=== PATIENT | male | born 1950 | race Caucasian/White ===

== ENCOUNTER 2018-05-03 05:57 | Inpatient (IN) ==
[2018-05-03] MEDS ORDERED: Metoprolol Tartrate 25 MG Tablet PO ONE (06:30)
[2018-05-03] MEDS ORDERED: Chlorhexidine Gluconate 2% 1 Pack (2 Cloths) TOPICAL ONE (06:30)
[2018-05-03] MEDS ORDERED: Heparin 10,000 UNITS/10 ML Vial (for IV use) ONE ×2 (06:56→08:20)
[2018-05-03] MEDS ORDERED: Heparin/NS PF Inj 500 ML ONE ×3 (06:56→10:38)
[2018-05-03] MEDS ORDERED: ceFAZolin 2 GM Premix Inj 2 GM/50 ML PIGGYBACK IV.SIG ONE (06:56)
[2018-05-03] MEDS ORDERED: Protamine Sulfate Inj 50 MG/5 ML Vial ONE ×2 (06:56→08:20)
[2018-05-03] MEDS ORDERED: Sodium Chlor 0.9% Inj 500 ML IV.SIG SCH (07:00)
--- NOTE | 2018-05-03 07:23 | P.PNVS ---
- Pre-operative Note Planned Procedure: EVAR with bilateral hypogastric branches Interval History: Pt has been feeling well - no F/C. Labs: Hct 45 plt 193 INR 2.1 (stopped coumadin) cr 1.1 Imaging: CTA reviewed Orders: NPO Ancef 2g IV OCTOR Post-operative Destination: PACU, CPCU Operative site marked: No Consent: Informed consent has been obtained from Bennie Garcia. I have explained the procedure in detail and discussed the risks, benefits, and potential complications. All questions have been answered. Patient Contact Information: [phone]
[2018-05-03 07:26] LABS: INR 1.1 Ratio; Prothrombin Time 10.7 sec (9.8-11.6)
[2018-05-03] MEDS ORDERED: Phenylephrine/NS 1000 MCG/10ML Syringe IV.PUSH ONE (07:47)
[2018-05-03] MEDS ORDERED: Sodium Chlor 0.9% Inj 500 ML IV.CONT ONE (07:47)
[2018-05-03] MEDS ORDERED: Sodium Chlor 0.9% Inj 250 ML IV.CONT ONE (07:47)
[2018-05-03] MEDS ORDERED: Lidocaine PF 1% Inj 5 ML Syringe OTHER ONE (07:47)
[2018-05-03] MEDS ORDERED: Normosol-R pH 7.4 Inj 2,000 ML IV.CONT ONE (07:47)
[2018-05-03] MEDS ORDERED: Iohexol 300 MG/ML 50 ML Vial (for Rad Diag) IVCONTRAST ONE (11:12)
[2018-05-03] MEDS ORDERED: Morphine Inj 4 MG/ML Vial IV.PUSH PRN (11:40)
[2018-05-03] MEDS ORDERED: Bisacodyl 10 MG Supp RECTAL PRN (11:40)
--- NOTE | 2018-05-03 11:40 | P.OP ---
- Preoperative Diagnosis (1) AAA (abdominal aortic aneurysm) without rupture (2) Iliac artery aneurysm, left (3) Iliac artery aneurysm, right - Postoperative Diagnosis (1) AAA (abdominal aortic aneurysm) without rupture (2) Iliac artery aneurysm, left (3) Iliac artery aneurysm, right Date of procedure: 05/03/18 Procedure: 1. EVAR 2. R DOROTHY aneursym embolization 3. L DOROTHY branched repair (limb to hypogastric artery and EIA) 4. B ELECTRONIC SCALE TESTER Perclose (18F RIGHT, 16F LEFT) Implants: 1. [place] Excluder bifurcated main body 2. L limb extension 3. L DOROTHY bifurcated stent 4. L EIA stent 5. L hypogastric stent 6. R iliac stent Anesthesia: GETA Surgeon: Janes Vee MD Otolaryngology Surgeon: Jason Pham Estimated blood loss (mL): 200 IV fluids (mL): 2,600 Urine output (mL): 1,700 Pathology: none sent Operation and Findings: 1. Successful EVAR 2. Preservation of L hypogastric artery with branched stent 3. Strong Doppler signals B
[2018-05-03] MEDS ORDERED: *morphine SULFATE 4 MG/ML PERIprocedure ONLY ONE ×2 (11:56→12:08)
[2018-05-03] MEDS ORDERED: fentaNYL Citrate Inj 100 MCG/2 ML Ampul ONE (12:04)
[2018-05-03] MEDS ORDERED: *HYDROmorphone PF Inj 1 MG/ML Ampul PERIprocedural Use ONLY ONE (12:21)
[2018-05-03] MEDS ORDERED: ALPRAZolam 0.5 MG Tablet PO PRN (12:45)
--- NOTE | 2018-05-03 17:19 | P.PNVS ---
Subjective Post Op Day #: 0 Procedure: EVAR with L iliac branch, R DOROTHY aneurysm embolization, B CHILI POWDER MIXER perclose Subjective/Hospital Course: c/o positional back pain but otherwise ok feet warm and no sensory changes Objective Vital Signs / I&O: Vital Signs 05/03/18 06:39 05/03/18 13:16 05/03/18 14:48 Temperature 97.9 F 97.6 F Pulse Rate 65 69 Respiratory Rate 16 18 20 Blood Pressure 108/59 L 132/68 Pulse Oximetry 96 95 05/03/18 15:01 05/03/18 15:44 05/03/18 16:00 Temperature 98.2 F Pulse Rate 71 70 86 Respiratory Rate 20 Blood Pressure 112/57 L Pulse Oximetry 95 05/03/18 17:00 Temperature Pulse Rate 69 Respiratory Rate Blood Pressure Pulse Oximetry Intake & Output 05/02/18 05/03/18 05/03/18 18:59 06:59 18:59 Intake Total 2900 / 2900 Output Total 2575 / 2575 Balance 325 / 325 Weight 139.1 kg Intake: IV 1050 / 1050 Heparin/NS PF Inj 500 ML @ 0 0 / 0 mls/hr .ROUTE .STK-MED ONE Rx#: [id number] LR 1000 mL Inj 1,000 ML @ 30 1000 / 1000 mls/hr IV.SIG .Q24H [facility] Rx#: [id number] Ancef 2 GM Premix Inj 2 gm In 50 / 50 50 ml @ 0 mls/hr IV.SIG .STK- MED ONE Rx#:[id number] Oral 250 / 250 Anesthesia Amount 1600 / 1600 Output: Urine 250 / 250 Estimated Blood Loss 200 / 200 Urine Amount (Catheter) 2124 / 2124 Indwelling Urethral Catheter 2124 Other: # Voids 2 Weight On Admission 139.1 kg Exam: no overall distress abdomen soft groins ok feet warm Laboratory Results - last 24 hr 05/03/18 05/03/18 06:35 06:35 PT 10.7 D INR 1.1 Blood Type O Positive Antibody Screen Negative Assessment and Plan - Assessment (1) AAA (abdominal aortic aneurysm) without rupture Code(s): I71.4 - Abdominal aortic aneurysm, without rupture Status: Acute (2) Iliac artery aneurysm, left Code(s): I72.3 - Aneurysm of iliac artery Status: Acute (3) Iliac artery aneurysm, right Code(s): I72.3 - Aneurysm of iliac artery Status: Acute - Plan NOS s/p percutaneous iliac branched EVAR 1. can sit on edge of bed at 1700 today 2. Paiz out in the morning (POD#1) 3. Cardiac diet 4. Potential d/c tomorrow (POD#1) Discharge Planning: POD#1 or 2
[2018-05-03] MEDS: Metoprolol Tartrate 25 MG Tablet PO SCH (21:20)
[2018-05-03] MEDS: Senna/Docusate Sodium 8.6/50 MG Tablet PO SCH (21:20)
--- NOTE | 2018-05-03 21:47 | MP ---
cc: Janes Vee MD DATE OF OPERATION: 05/03/2018 PREOPERATIVE DIAGNOSES: 1. Abdominal aortic aneurysm. 2. Right common iliac artery aneurysm. 3. Left iliac artery aneurysm. POSTOPERATIVE DIAGNOSIS: 1. Abdominal aortic aneurysm. 2. Right common iliac artery aneurysm. 3. Left iliac artery aneurysm. PROCEDURE: Abdominal aortic aneurysm. 1. Endovascular exclusion with a bifurcated aortobiiliac graft. 2. Left common iliac artery bifurcated graft with a stent into the left hypogastric artery and left external iliac artery. 3. Right common iliac artery embolization. 4. Right common femoral artery Perclose (18-Filipino sheath). 6. Left common femoral artery Perclose (16-Filipino sheath). ATTENDING SURGEON: Janes Vee MD ADVISORY SOFTWARE ENGINEER SURGEON: MD Caro Bell PA, PA/Typesetting Machine Operator/Tender ANESTHESIA: General. INDICATIONS FOR PROCEDURE: Mr. Garcia is a 68-year-old gentleman with abdominal aneurysm, bilateral common iliac artery aneurysm. He was taken to the operating room for a branch endovascular repair. Intraoperatively, it was found he had a very high-grade right hypogastric artery stenosis prohibiting the use of a branch device on the side; however, the left hypogastric artery was successfully branched. PROCEDURE: Informed consent was obtained from the patient and he was taken to the operating room and placed supine on the operating room table. An appropriate timeout was taken to ensure the patient's identity, operative site and planned procedure and the administration of 3 grams of Kefzol were initiated prior to the skin incision and will be discontinued after a single preoperative dose. Everyone in the room agreed with the timeout and we proceeded. He was prepped from his nipples to his knees bilateral common femoral accessed with a 21-gauge micropuncture needle was exchanged using Seldinger technique for a micropuncture sheath, through which 0.035 STORQ wire was introduced. The micropuncture sheath was exchanged for a 5-Filipino sheath, which was used to dilate the skin and subcutaneous tract and arteriotomy. Two Perclose ProGlide sutures were inserted into each side and tagged for later use. 8-Filipino sheaths were then introduced. The patient was systemically heparinized and throughout the remainder of the case, the was kept greater than 250. The catheters were advanced over the STORQ wires and the STORQ wires were exchanged for Lunderquist wires. The 8-Filipino sheaths were removed and Kelly dilator was used to dilate the skin and subcutaneous tract and arteriotomy. We dilated up to an 18-Filipino sheath on the right and a 16-Filipino sheath on the left and [place] DrySeal sheaths were placed in both arteries with the sizes above. A 7-Filipino snare was then placed over the left-hand side and a right 18-Filipino sheath was doubly stuck with a stiffened Glidewire and the Glidewire was snared from the left hand side and pulled out the left sheath providing through and through access. Over the stiff wire on the right, the right iliac branch was a 23 x 12 x 10, was then introduced and deployed down to the contralateral gate after interval angiography confirmed the location of the right hypogastric artery. We then attempted multiple maneuvers. We then placed a 16-Filipino sheath and intubated this with a 12-Filipino sheath from the left hand side intubating the right ANDREA down and cannulated the right hypogastric limb and multiple attempts were made to cannulate the right hypogastric artery but these were unsuccessful. As such, a Berenstein catheter was placed from the left hand side into the right common iliac artery and this artery was embolized without difficulty. The remainder of the IVU limb was deployed and then a stiff wires were advanced in the left ANDREA limb, which was a 23 x 10 x 10 was inserted through the left hand side. The 18-Filipino sheath from the right was then advanced by snaring a stiff wire from the left hand side over to the right hand side and then advanced to the 18-Filipino sheath and a 12-Filipino sheath of it from the right hand side up and over the aortic bifurcation into the left hand side. We then used a Berenstein catheter to cannulate the ANDREA gate and into the hypogastric artery. This was confirmed angiographically. The Glidewire was removed and a stiff Amplatz wire was then introduced. Through the 12-Filipino sheath and 18-Filipino sheath on the right, a right ANDREA limb, which was a 16 x 10 x 7 was introduced and deployed without difficulty into the right hypogastric artery. The remainder of the left ANDREA was deployed and the distal ANDREA limb and the hypogastric artery were angioplastied with a 10 mm balloon and the proximal was angioplastied with a Q50 balloon. The left ANDREA was then angioplastied with the Q50 balloon as well. The right ANDREA was angioplastied with a 10 mm balloon and then stiff wire was advanced up to the proximal descending aorta. The left stiff wire was exchanged for a marker Flush catheter and over the right stiff wire through the 18-Filipino sheath after removal of the transfemoral stiff glide, the main device, which was a 28 x 14.5 x 12 was introduced with the limbs purposefully crossed for stabilization. It was deployed and interval angiography was performed to locate the renal arteries and the device was deployed below the renal arteries and down to the contralateral gate. The Roadrunner wire was then placed through the marker flush catheter and the Berenstein catheter was then used, along with the Roadrunner wire to cannulate the contralateral gate and this was confirmed angiographically and with a Q50 balloon. A stiff guidewire was then placed and a bridging piece from the contralateral gate to the left ANDREA was then placed, which was a 27 x 12. This was deployed without difficulty and then the remainder of the main device was deployed. A bridging stent was then placed from the ipsilateral limb of the main device down to the right ANDREA and this was a 27 x 10 and then we relined the right ANDREA with a 16 x 14.5 x 14 limb, thereby excluding the common iliac artery aneurysm on the right hand side. A Q50 was used to balloon angioplasty all the proximal and distal ends as well as the gap and the completion angiogram showed excellent filling of both renal arteries, no opacification of the abdominal aortic aneurysm, the right common iliac artery aneurysm, or the left common iliac artery aneurysm. There was good opacification of the left hypogastric artery and all of its branches and no endoleak. The wire, catheter and sheath were removed. The Perclose were tied down and signals were obtained in the feet. Hemostasis was achieved in the groins and the patient was then awoken from anesthesia and transferred to the recovery room in stable condition. I was present and scrubbed, and performed the entire procedure. MD MIKE Johnson/ct/do , 05:31 PM , 05:44 PM
[2018-05-04 04:30] LABS: Hematocrit 42.5 % (39.0-51.0); Mean Corpuscular Hemoglobin 30.7 pg (27.0-34.0); Mean Corpuscular Volume 92.9 fL (80.0-100.0); Mean Platelet Volume 8.5 fL (7.0-11.0); Platelet Count 159 th/mm3 (150-450); Red Blood Count 4.58 mil/mm3 (4.50-5.90); Red Cell Distribution Width 15.1 % (11.6-17.2); White Blood Count 10.1 th/mm3 (4.0-11.0)
[2018-05-04 05:01] LABS: Calcium 8.4 mg/dL (8.5-10.1); Carbon Dioxide 30.3 meq/L (21.0-32.0); Potassium 3.9 meq/L (3.5-5.1)
--- NOTE | 2018-05-04 06:59 | P.PNVS ---
Subjective Procedure: EVAR with L iliac branch, R DOROTHY aneurysm embolization, B MACHINE ASSEMBLER perclose Subjective/Hospital Course: looks great Paiz out and voiding ambulating in room nidhi po Objective Vital Signs / I&O: Vital Signs 05/03/18 11:42 05/03/18 11:45 05/03/18 12:00 Temperature 97.6 F Pulse Rate 76 71 68 Respiratory Rate 16 16 16 Blood Pressure 116/57 L 117/58 L 120/57 L Pulse Oximetry 95 95 95 05/03/18 12:15 05/03/18 12:30 05/03/18 13:16 Temperature 98 F 97.6 F Pulse Rate 71 72 69 Respiratory Rate 19 16 18 Blood Pressure 123/58 L 118/59 L 132/68 Pulse Oximetry 94 L 94 L 95 05/03/18 14:48 05/03/18 15:01 05/03/18 15:44 Temperature 98.2 F Pulse Rate 71 70 Respiratory Rate 20 20 Blood Pressure 112/57 L Pulse Oximetry 95 05/03/18 16:00 05/03/18 17:00 05/03/18 18:00 Temperature Pulse Rate 86 69 75 Respiratory Rate Blood Pressure Pulse Oximetry 05/03/18 18:45 05/03/18 19:00 05/03/18 20:00 Temperature 97.7 F Pulse Rate 75 76 Respiratory Rate 18 20 Blood Pressure 118/60 Pulse Oximetry 99 05/03/18 21:00 05/03/18 22:00 05/03/18 22:33 Temperature Pulse Rate 78 74 Respiratory Rate 20 Blood Pressure Pulse Oximetry 05/03/18 23:00 05/04/18 00:00 05/04/18 01:00 Temperature 97.9 F Pulse Rate 85 52 L 54 L Respiratory Rate 20 Blood Pressure 115/58 L Pulse Oximetry 97 05/04/18 02:00 05/04/18 03:00 05/04/18 04:00 Temperature 98.5 F Pulse Rate 82 85 82 Respiratory Rate 20 Blood Pressure 106/61 Pulse Oximetry 91 L 05/04/18 05:00 05/04/18 05:44 05/04/18 06:00 Temperature Pulse Rate 79 81 Respiratory Rate 20 Blood Pressure Pulse Oximetry Intake & Output 05/03/18 05/03/18 05/04/18 06:59 18:59 06:59 Intake Total 2900 / 2900 480 / 480 Output Total 2575 / 2575 1050 / 1050 Balance 325 / 325 -570 / -570 Weight 139.1 kg 137.5 kg Intake: IV 1050 / 1050 Heparin/NS PF Inj 500 ML @ 0 0 / 0 mls/hr .ROUTE .STK-MED ONE Rx#: [id number] LR 1000 mL Inj 1,000 ML @ 30 1000 / 1000 mls/hr IV.SIG .Q24H [facility] Rx#: [id number] Ancef 2 GM Premix Inj 2 gm In 50 / 50 50 ml @ 0 mls/hr IV.SIG .STK- MED ONE Rx#:[id number] Oral 250 / 250 480 / 480 Anesthesia Amount 1600 / 1600 Output: Urine 250 / 250 1050 / 1050 Estimated Blood Loss 200 / 200 Urine Amount (Catheter) 2124 Indwelling Urethral Catheter 2124 Other: # Voids 2 Date of Last Bowel Movement 05/02/18 Weight On Admission 139.1 kg Exam: B groins soft minimal L groin ecchymosis but no fullness either groin ambulating well Laboratory Results - last 24 hr 05/03/18 05/03/18 05/04/18 06:35 06:35 04:04 WBC 10.1 RBC 4.58 Hgb 14.0 Hct 42.5 MCV 92.9 MCH 30.7 MCHC 33.0 RDW 15.1 Plt Count 159 MPV 8.5 PT 10.7 D INR 1.1 Sodium Potassium Chloride Carbon Dioxide Anion Gap BUN Creatinine Estimated GFR Random Glucose Calcium Blood Type O Positive Antibody Screen Negative 05/04/18 04:04 WBC RBC Hgb Hct MCV MCH MCHC RDW Plt Count MPV PT INR Sodium 137 Potassium 3.9 Chloride 99 Carbon Dioxide 30.3 Anion Gap 8 BUN 11 Creatinine 1.19 Estimated GFR 60 L Random Glucose 117 H Calcium 8.4 L Blood Type Antibody Screen Assessment and Plan - Assessment (1) AAA (abdominal aortic aneurysm) without rupture Code(s): I71.4 - Abdominal aortic aneurysm, without rupture Status: Acute (2) Iliac artery aneurysm, left Code(s): I72.3 - Aneurysm of iliac artery Status: Acute (3) Iliac artery aneurysm, right Code(s): I72.3 - Aneurysm of iliac artery Status: Acute - Plan POD#1 s/p percutaneous iliac branched EVAR 1. reg diet, meds 2. D/C today Discharge Planning: today
--- NOTE | 2018-05-04 07:04 | P.DS ---
Discharge Summary - Admission Date 05/03/18 05:57 - Admission Diagnosis (1) AAA (abdominal aortic aneurysm) without rupture (2) Iliac artery aneurysm, left (3) Iliac artery aneurysm, right - Discharge Diagnosis (1) AAA (abdominal aortic aneurysm) without rupture Status: Acute (2) Iliac artery aneurysm, left Status: Acute (3) Iliac artery aneurysm, right Status: Acute - Summary Brief History from admission: 68 yo male with asymptomatic AAA, B DOROTHY aneurysms. Presented for elective branched EVAR. Procedure: EVAR with L iliac branch, R DOROTHY aneurysm embolization, B CONTROL BOARD OPERATOR perclose Significant Findings: Abnormal Lab Results 05/03/18 05/03/18 05/04/18 06:35 06:35 04:04 WBC 10.1 RBC 4.58 Hgb 14.0 Hct 42.5 MCV 92.9 MCH 30.7 MCHC 33.0 RDW 15.1 Plt Count 159 MPV 8.5 PT 10.7 D INR 1.1 Sodium Potassium Chloride Carbon Dioxide Anion Gap BUN Creatinine Estimated GFR Random Glucose Calcium Blood Type O Positive Antibody Screen Negative 05/04/18 04:04 WBC RBC Hgb Hct MCV MCH MCHC RDW Plt Count MPV PT INR Sodium 137 Potassium 3.9 Chloride 99 Carbon Dioxide 30.3 Anion Gap 8 BUN 11 Creatinine 1.19 Estimated GFR 60 L Random Glucose 117 H Calcium 8.4 L Blood Type Antibody Screen Hospital Course: The patient underwent EVAR with R DOROTHY aneurysm embolization and L DOROTHY branched repair on 05/03. He did well post-operatively and on POD#1, he was ambulating, his groins were soft, and he had only mild back discomfort. He is ready for d/ c POD#1. [employer] database queried and he has recently refilled narcotic medications (N= 120 on 04/26/18) so no additional pain medication required. - Discharge Instructions 1. Resume all home medications including coumadin. 2. No heavy lifting x 2 weeks. 3. Avoid strenuous activity x 2 weeks Any questions or concerns: Call [facility] at [facility] [phone] Discharge Plan - Discharge Disposition Patient Disposition: 01 Discharge Home - Discharge Condition Condition: Good - Discharge Order Discharge Orders: Discharge Order (Routine); Ordered 05/04/18 Ordered By: Janes Vee - Physicians Team Primary Care Provider: Artur Verma Attending Provider: Janes Vee - Rxs /Orders / Referrals /Forms Prescriptions: No Action alprazolam [Xanax] 0.5 mg Tablet 0.5 mg PO BID PRN (Reason: Anxiety) amlodipine 10 mg Tablet 10 mg PO DAILY hydrocodone-acetaminophen 10-325 mg Tablet 1 tab PO Q6H PRN (Reason: Pain) metoprolol tartrate 25 mg Tablet 25 mg PO BID paroxetine HCl [Paxil] 10 mg Tablet 10 mg PO DAILY pravastatin 20 mg Tablet 20 mg PO DAILY warfarin 5 mg Tablet 5 mg PO DAILY Referrals: Artur Verma MD [Primary Care Provider] - See Instructions
[2018-05-04 08:43] VITALS: RESP 16
[2018-05-04] MEDS: Senna/Docusate Sodium 8.6/50 MG Tablet PO SCH (08:45)
[2018-05-04] MEDS: Metoprolol Tartrate 25 MG Tablet PO SCH (08:46)
[2018-05-04] MEDS ORDERED: Aspirin 325 MG Tablet PO SCH (09:00)
[2018-05-04] MEDS ORDERED: amLODIPine 10 MG Tablet PO SCH (09:00)
[2018-05-04 10:20] VITALS: PULSE 77
[2018-05-04 10:25] VITALS: BP 111/57; TEMP 98; O2SAT 93
[2018-05-04] MEDS ORDERED: Enoxaparin Inj 40 MG/0.4 ML Syringe SQ SCH (11:00)
== END 2018-05-04 10:36 | disposition home or self-care (01) ==
LOC: HSDI 05:57 → HCPC 12:48
PROVIDERS: ADMIT Surgery; ATTEND Surgery